=== PATIENT | male | born 1955 | race Caucasian/White ===

== ENCOUNTER → 2020-12-05 | Outpatient (CLI) | payer OTHER ==
[~2020-12-05] MED LIST: ALBUTEROL1.25 MG/3 INH; DOLOPHINE HCL10 MG PO; ECOTRIN81 MG PO; KLONOPIN TAB 00.5 MG PO; LIPITOR TAB 2020 MG PO; NEURONTIN400 MG PO; ONCE DAILY1 EACH PO; PLAVIX 75 MG TA75 MG PO; PROVENTIL HFA6.7 GM INH
== END ==
LOC: RAD 12:08
DX: M54.6 Pain in thoracic spine (principal); M54.17 Radiculopathy, lumbosacral region; M43.16 Spondylolisthesis, lumbar region; G95.89 Other specified diseases of spinal cord
CPT/HCPCS: 72072

== ENCOUNTER → 2021-05-03 | Outpatient (CLI) | payer OTHER | LOC: RAD 14:34 | DX: M54.12 Radiculopathy, cervical region (principal); M47.812 Spondylosis without myelopathy or radiculopathy, cervical region; M48.02 Spinal stenosis, cervical region ==